=== PATIENT | female | born 1995 | race Two or more races ===

== ENCOUNTER 2023-02-19 09:51 | Outpatient (CLI) | payer OTHER | END 2023-02-19 10:43 | disposition home or self-care (01) | LOC: LAB 09:51 | PROVIDERS: ATTEND Obstetrics & Gynecology | DX: Z34.01 Encounter for supervision of normal first pregnancy, first trimester (principal) ==

== ENCOUNTER 2023-05-24 10:01 | Outpatient (CLI) | payer OTHER | END 2023-05-24 10:13 | disposition home or self-care (01) | LOC: LAB 10:01 | PROVIDERS: ATTEND Obstetrics & Gynecology | DX: Z34.03 Encounter for supervision of normal first pregnancy, third trimester (principal) ==